=== PATIENT | male | born 1980 | race Caucasian/White ===

== ENCOUNTER 2018-06-16 14:59 | Emergency (ER) | payer SELFPAY ==
[~2018-06-16] VITALS: Ht 172.7 cm; Wt 75.0 kg
[2018-06-16] MEDS ORDERED: LIDOCAINE W/EPINEPHRINE 1% 20ML VIAL As Ordered ONE (15:15)
[2018-06-16] MEDS ORDERED: LIDOCAINE W/EPINEPHRINE 1% 20ML VIAL SC ONE (15:15)
[2018-06-16] MEDS ORDERED: ADACEL/BOOSTRIX VACCINE (DIPHTH/PERTUSS/ACELL/TETANUS)0.5ML SYR (90715) IM ONE (15:15)
[2018-06-16] MEDS ORDERED: ONDANSETRON 4MG/2ML VIAL (J2405) IV ONE (15:30)
[2018-06-16] MEDS ORDERED: LORazepam 2 MG/ML VIAL (J2060) IV ONE (15:30)
[2018-06-16 16:02] LABS: HEMATOCRIT 33.1 % (42.0-52.0); HEMOGLOBIN 11.3 g/dl (13.5-17.5); MEAN CORPUSCULAR HEMOGLOBIN 33.6 pg (27.0-33.0); MEAN CORPUSCULAR HGB CONC 34.1 g/dl (32.0-36.5); MEAN CORPUSCULAR VOLUME 98.5 fl (80.0-96.0); PLATELET COUNT, AUTOMATED 158 10^3/uL (150-450); RED BLOOD COUNT 3.36 10^6/uL (4.30-6.10); WHITE BLOOD COUNT 6.7 10^3/uL (4.0-10.0)
[2018-06-16 16:46] LABS: ACETAMINOPHEN LEVEL < 2.0 UG/ML (10.0-30.0); ALBUMIN 3.8 GM/DL (3.2-5.2); ALT/SGPT 123 U/L (12-78); BILIRUBIN,DIRECT 0.1 MG/DL (0.0-0.2); BILIRUBIN,TOTAL 0.4 MG/DL (0.2-1.0); BLOOD UREA NITROGEN 7 MG/DL (7-18); CALCIUM LEVEL 7.6 MG/DL (8.5-10.1); CARBON DIOXIDE LEVEL 19 MEQ/L (21-32); CHLORIDE LEVEL 104 MEQ/L (98-107); CREATININE FOR GFR 0.82 MG/DL (0.70-1.30); ETHYL ALCOHOL (ETHANOL) 0.045 % (0.000-0.010); GLOMERULAR FILTRATION RATE > 60.0 (>60); GLUCOSE, FASTING 106 MG/DL (70-100); POTASSIUM SERUM 3.6 MEQ/L (3.5-5.1); SALICYLATE LEVEL < 1.7 MG/DL (5.0-30.0); SODIUM LEVEL 138 MEQ/L (136-145); TOTAL PROTEIN 7.1 GM/DL (6.4-8.2)
--- NOTE | 2018-06-16 19:21 | REP ---
AP LATERAL LEFT WRIST, TWO VIEWS: HISTORY: Foreign body. There is no acute fracture or dislocation. An irregular radiopaque foreign body is present in the soft-tissue medial to the carpal bones and distal ulna. IMPRESSION:There is a radiopaque foreign body in the soft-tissues as described above. Electronically Signed by Sunil Lynn MD 06/17/2018 08:41 A
[2018-06-16 19:44] LABS: AMPHETAMINES LEVEL URINE NEGATIVE (NEGATIVE); BARBITURATES URINE NEGATIVE (NEGATIVE); BENZODIAZEPINES URINE NEGATIVE (NEGATIVE); CANNABINOIDS URINE NEGATIVE (NEGATIVE); COCAINE METABOLITE URINE NEGATIVE (NEGATIVE); METHADONE URINE NEGATIVE (NEGATIVE); OPIATES URINE NEGATIVE (NEGATIVE); PHENCYCLIDINE URINE NEGATIVE (NEGATIVE)
[2018-06-16] MEDS ORDERED: KEFL500C17 PO (20:20)
[2018-06-16 20:22] VITALS: BP 113/67
== END 2018-06-16 20:35 | disposition home or self-care (01) ==
LOC: M ED 14:59
DX: S61.512A Laceration without foreign body of left wrist, initial encounter (principal); W25.XXXA Contact with sharp glass, initial encounter; Y92.009 Unspecified place in unspecified non-institutional (private) residence as the place of occurrence of the external cause; Y93.9 Activity, unspecified; Y99.8 Other external cause status; F10.20 Alcohol dependence, uncomplicated; F17.210 Nicotine dependence, cigarettes, uncomplicated
CPT/HCPCS: 12004; 73100; 80048; 80076; 80307; 84443; 85027; 90715; 99284; G0480; J2060; J2405

== ENCOUNTER 2020-04-08 22:36 | Emergency (ER) | payer MEDICAID, SELFPAY ==
[~2020-04-08] VITALS: Ht 185.4 cm; Wt 78.6 kg
[~2020-04-08 22:36] MED LIST: KEFL500C17 PO
[2020-04-08] MEDS ORDERED: ONDANSETRON 4MG/2ML VIAL IV ONE (23:00)
[2020-04-08] MEDS ORDERED: PANTOPRAZOLE 40MG VIAL (C9113 PER 1) IV ONE (23:00)
[2020-04-08] MEDS ORDERED: NS 1,000 ML IV ONE (23:00)
--- NOTE | 2020-04-08 23:42 | REPVR ---
PROCEDURE INFORMATION: Exam: XR Complete Acute Abdomen Series Exam date and time: 04/08/2020 10:55 PM Age: 39 years old Clinical indication: Other: Abdominal pain TECHNIQUE: Imaging protocol: XR complete acute abdomen series, including 2 or more views of the abdomen and a single view chest. COMPARISON: No relevant prior studies available. FINDINGS: Lungs: Normal. No consolidation. Pleural spaces: Normal. No pleural effusions. No pneumothorax. Heart/Mediastinum: Normal. No cardiomegaly. Gastrointestinal tract: Mild gas throughout the GI tract without abnormal dilatation. No abnormal air-fluid levels. Intraperitoneal space: No free air. Bones/joints: Normal. No acute fracture. Soft tissues: Normal. IMPRESSION: 1. Negative chest. 2. Negative abdomen with mild gas which is within normal limits. Electronically signed by: Rasheed Trujillo On 04/08/2020 23:42:52 PM
[2020-04-09] LABS: INR 0.84; PROTHROMBIN TIME 11.7 SECONDS (12.5-14.3)
[2020-04-09 00:04] LABS: AMPHETAMINES LEVEL URINE NEGATIVE (NEGATIVE); BARBITURATES URINE NEGATIVE (NEGATIVE); BENZODIAZEPINES URINE NEGATIVE (NEGATIVE); CANNABINOIDS URINE NEGATIVE (NEGATIVE); COCAINE METABOLITE URINE NEGATIVE (NEGATIVE); METHADONE URINE NEGATIVE (NEGATIVE); OPIATES URINE NEGATIVE (NEGATIVE); PHENCYCLIDINE URINE NEGATIVE (NEGATIVE)
[2020-04-09 00:07] LABS: BASO # 0.1 10^3/uL (0.0-0.2); BASO % 1.8 % (0.0-1.0); EOS % 0.3 % (0.0-3.0); HEMATOCRIT 45.3 % (42.0-52.0); HEMOGLOBIN 15.3 g/dl (13.5-17.5); LYMPH # 1.3 10^3/uL (1.5-5.0); LYMPH % 40.6 % (24.0-44.0); MEAN CORPUSCULAR HEMOGLOBIN 33.5 pg (27.0-33.0); MEAN CORPUSCULAR HGB CONC 33.8 g/dl (32.0-36.5); MEAN CORPUSCULAR VOLUME 99.1 fl (80.0-96.0); MONO # 0.4 10^3/uL (0.0-0.8); MONO % 13.3 % (2.0-8.0); NEUTROPHILS # 1.4 10^3/uL (1.5-8.5); NEUTROPHILS % 43.7 % (36.0-66.0); PLATELET COUNT, AUTOMATED 109 10^3/uL (150-450); RED BLOOD COUNT 4.57 10^6/uL (4.30-6.10); WHITE BLOOD COUNT 3.3 10^3/uL (4.0-10.0)
[2020-04-09 00:22] LABS: ALBUMIN 4.7 GM/DL (3.2-5.2); ALT/SGPT 84 U/L (12-78); BILIRUBIN,DIRECT 0.2 MG/DL (0.0-0.2); BILIRUBIN,TOTAL 0.4 MG/DL (0.2-1.0); BLOOD UREA NITROGEN 5 MG/DL (7-18); CALCIUM LEVEL 9.3 MG/DL (8.5-10.1); CARBON DIOXIDE LEVEL 29 MEQ/L (21-32); CHLORIDE LEVEL 106 MEQ/L (98-107); CREATININE FOR GFR 0.75 MG/DL (0.70-1.30); ETHYL ALCOHOL (ETHANOL) 0.395 % (0.000-0.010); GLOMERULAR FILTRATION RATE > 60.0 (>60); GLUCOSE, FASTING 73 MG/DL (70-100); LIPASE 243 U/L (73-393); POTASSIUM SERUM 3.8 MEQ/L (3.5-5.1); SODIUM LEVEL 146 MEQ/L (136-145); TOTAL PROTEIN 8.2 GM/DL (6.4-8.2)
[2020-04-09] MEDS ORDERED: NICOTINE 21MG/24HR 1 EA TRANSDERMAL TD ONE (03:00)
[2020-04-09 06:39] VITALS: BP 120/71
== END 2020-04-09 06:53 | disposition home or self-care (01) ==
LOC: M ED 22:36 → EDBD 22:36 → M ED 04-09 06:53
DX: F10.129 Alcohol abuse with intoxication, unspecified (principal); F17.200 Nicotine dependence, unspecified, uncomplicated
CPT/HCPCS: 74021; 80048; 80076; 80307; 82077; 83690; 85025; 85610; 86850; 86900; 86901; 87798; 96361; 96374; 96375; 99285; C9113; J2405

== ENCOUNTER 2020-04-09 16:20 | Emergency (ER) | payer MEDICAID, SELFPAY ==
[~2020-04-09] VITALS: Ht 182.9 cm; Wt 77.8 kg
--- OUTSIDE RECORDS SUMMARY | 2020-04-09 16:32 | CCD ---
Author Author [facility] Address Unknown Phone Unavailable Support Name Relationship Address Phone GRACIE Next Of Kin [address] [place], [place] [phone] ST Next Of Kin Unknown Unavailable MIGUEL A BISHOP Next Of Kin [place], [place] [phone] TAMIKO BISHOP Next Of Kin [place] [phone] OLIVER BISHOP Next Of Kin Unknown Re-disclosure Warning The records that you are about to access may contain information from federally-assisted alcohol or drug abuse programs. If such information is present, then the following federally mandated warning applies: This information has been disclosed to you from records protected by federal confidentiality rules (42 CFR part 2). The federal rules prohibit you from making any further disclosure of this information unless further disclosure is expressly permitted by the written consent of the person to whom it pertains or as otherwise permitted by 42 CFR part 2. A general authorization for the release of medical or other information is NOT sufficient for this purpose. The Federal rules restrict any use of the information to criminally investigate or prosecute any alcohol or drug abuse patient.The records that you are about to access may contain highly sensitive health information, the redisclosure of which is protected by Article 27-F of the [facility] Public Health law. If you continue you may have access to information: Regarding HIV / AIDS; Provided by facilities licensed or operated by the [facility] Office of Mental Health; or Provided by the [facility] Office for People With Developmental Disabilities. If such information is present, then the following [facility] mandated warning applies: This information has been disclosed to you from confidential records which are protected by state law. State law prohibits you from making any further disclosure of this information without the specific written consent of the person to whom it pertains, or as otherwise permitted by law. Any unauthorized further disclosure in violation of state law may result in a fine or assisted sentence or both. A general authorization for the release of medical or other information is NOT sufficient authorization for further disc losure. Insurance Providers Payer name Policy type / Coverage type Policy ID Covered green party ID Covered green party's relationship to [place] Policy [place] Plan Information SELF PAY ONLY [id number] Results ID Date Data Source [id number] 02/15/2020 09:36:00 AM EST [place] Name Value Range Interpretation Code Description Data [place] rce(s) Supporting Document(s) [facility] This lab was ordered by [facility] and reported by [email or web address]. Procedure
[2020-04-09] MEDS ORDERED: LORazepam 2 MG TAB PO PRN (17:00)
[2020-04-09] MEDS ORDERED: ONDANSETRON 4MG/2ML VIAL IV ONE (17:00)
[2020-04-09] MEDS ORDERED: LORazepam 2 MG/ML VIAL IV STA (17:01)
[2020-04-09 17:10] LABS: HEMATOCRIT 41.3 % (42.0-52.0); HEMOGLOBIN 13.7 g/dl (13.5-17.5); MEAN CORPUSCULAR HGB CONC 33.2 g/dl (32.0-36.5); MEAN CORPUSCULAR VOLUME 99.5 fl (80.0-96.0); RED BLOOD COUNT 4.15 10^6/uL (4.30-6.10)
[2020-04-09 17:11] LABS: PLATELET COUNT, AUTOMATED 95 10^3/uL (150-450)
--- OUTSIDE RECORDS SUMMARY | 2020-04-09 17:34 | CCD ---
Author Author [facility] Address Unknown Phone Unavailable Support Name Relationship Address Phone GRACIE Next Of Kin [address] [place], [place] [phone] ST Next Of Kin Unknown Unavailable MIGUEL A BISHOP Next Of Kin [place], [place] [phone] TAMIKO BISHOP Next Of Kin [place] [phone] OLIVER BISHOP Next Of Kin Unknown Re-disclosure [...] is protected by Article 27-F of the [facility] Public Health law. If you continue you may have access to information: Regarding HIV / AIDS; Provided by facilities licensed or operated by the [facility] Office of Mental Health; or Provided by the [facility] Office for People With Developmental Disabilities. If such information is present, then the following [facility] mandated warning applies: This information has been [...] law may result in a fine or fdc sentence or both. A general authorization for the release of medical or other information is NOT sufficient authorization for further disc losure. Insurance Providers Payer name Policy type / Coverage type Policy ID Covered green party ID Covered green party's relationship to [place] Policy [place] Plan Information SELF PAY ONLY [id number] Results ID Date Data Source [id number] 02/15/2020 09:36:00 AM EST [place] Name Value Range Interpretation Code Description Data [place] rce(s) Supporting Document(s) [facility] This lab was ordered by [facility] and reported by [facility]. Procedure
[2020-04-09 17:50] LABS: ACETAMINOPHEN LEVEL < 2.0 UG/ML (10.0-30.0); ALBUMIN 4.4 GM/DL (3.2-5.2); ALT/SGPT 77 U/L (12-78); BILIRUBIN,DIRECT 0.2 MG/DL (0.0-0.2); BILIRUBIN,TOTAL 0.7 MG/DL (0.2-1.0); BLOOD UREA NITROGEN 8 MG/DL (7-18); CALCIUM LEVEL 8.3 MG/DL (8.5-10.1); CARBON DIOXIDE LEVEL 29 MEQ/L (21-32); CHLORIDE LEVEL 103 MEQ/L (98-107); CPK CREATINE PHOSPHOKINASE 344 U/L (39-308); ETHYL ALCOHOL (ETHANOL) < 0.003 % (0.000-0.010); GLOMERULAR FILTRATION RATE > 60.0 (>60); GLUCOSE, FASTING 91 MG/DL (70-100); POTASSIUM SERUM 3.8 MEQ/L (3.5-5.1); SALICYLATE LEVEL < 1.7 MG/DL (5.0-30.0); SODIUM LEVEL 141 MEQ/L (136-145); THYROID STIMULATING HORMONE 0.952 uIU/ML (0.358-3.740); TOTAL PROTEIN 7.5 GM/DL (6.4-8.2)
[2020-04-09] MEDS ORDERED: MULTIVITAMIN -ADULT INJECTION 10 ML, THIAMINE INJection 100 MG, FOLIC ACID 1 MG in NS 1... IV ONE (18:00)
--- NOTE | 2020-04-09 20:53 | ECGEPIP ---
[facility] - ED Test Date: 2020-04-09 Pat Name: BRAD BISHOP Department: Room: - Gender: Male Marriage Counselor Minister: LR : 1980 Requested By: UMU Vallejo Order Number: [id number] Reading MD: Klarissa Jarrett Measurements Intervals [place] Rate: 72 P: 19 WY: 122 QRS: 70 QRSD: 84 T: 43 QT: 420 QTc: 459 Interpretive Statements Normal sinus rhythm with sinus arrhythmia NSTTW abnormalities No prior Electronically Signed on 04-09-2020 20:53:23 EST by Klarissa Jarrett
[2020-04-09] MEDS ORDERED: THIAMINE 100 MG TAB PO SCH (21:00)
[2020-04-09] MEDS ORDERED: LORazepam 2 MG/ML VIAL IV PRN (21:00)
[2020-04-09 21:02] LABS: AMPHETAMINES LEVEL URINE NEGATIVE (NEGATIVE); BARBITURATES URINE NEGATIVE (NEGATIVE); BENZODIAZEPINES URINE NEGATIVE (NEGATIVE); CANNABINOIDS URINE NEGATIVE (NEGATIVE); COCAINE METABOLITE URINE NEGATIVE (NEGATIVE); METHADONE URINE NEGATIVE (NEGATIVE); OPIATES URINE NEGATIVE (NEGATIVE); PHENCYCLIDINE URINE NEGATIVE (NEGATIVE)
[2020-04-09 21:25] VITALS: BP 136/83
[2020-04-10] MEDS ORDERED: FOLIC ACID 1 MG TAB PO SCH (09:00)
[2020-04-10] MEDS ORDERED: MULTIVITAMINS/MINERALS THERAP 1 TAB PO SCH (09:00)
== END 2020-04-09 21:30 | disposition short-term general hospital (02) ==
LOC: M ED 16:20
DX: F10.239 Alcohol dependence with withdrawal, unspecified (principal); F17.200 Nicotine dependence, unspecified, uncomplicated
CPT/HCPCS: 80048; 80076; 80143; 80307; 82077; 82550; 84443; 85027; 85049; 85055; 87798; 93005; 96361; 96374; 96375; 99284; J2060; J2405; J3411

== ENCOUNTER 2020-09-20 03:26 | Emergency (ER) | payer MEDICAID, OTHER ==
[~2020-09-20] VITALS: Ht 180.3 cm; Wt 72.0 kg
[2020-09-20 03:26] VITALS: BP 138/85
[2020-09-20] MEDS ORDERED: KETO10TAB PO (07:05)
[2020-09-20] MEDS ORDERED: KETOROLAC TROMETHAMINE 10 MG TAB PO ONE (07:05)
[2020-09-20] MEDS ORDERED: LIDO2SOL9 SSP (07:05)
[2020-09-20] MEDS ORDERED: AUGMENTIN 875 MG TAB PO ONE (07:05)
[2020-09-20] MEDS ORDERED: LIDOCAINE VISCOUS 2% SOLN 15ML UDC SSP ONE (07:05)
[2020-09-20] MEDS ORDERED: AUGM875T28 PO (07:05)
== END 2020-09-20 07:23 | disposition home or self-care (01) ==
LOC: M ED 03:26
DX: K04.7 Periapical abscess without sinus (principal); F17.210 Nicotine dependence, cigarettes, uncomplicated

== ENCOUNTER 2020-09-29 19:09 | Emergency (ER) | payer OTHER ==
[~2020-09-29] VITALS: Ht 180.3 cm; Wt 68.4 kg
[~2020-09-29 19:09] MED LIST changes: +AUGM875T28 PO; +KETO10TAB PO; +LIDO2SOL9 SSP
[2020-09-29 19:10] VITALS: BP 138/84
== END 2020-09-29 20:38 | disposition left against medical advice (07) ==
LOC: M ED 19:09
DX: F10.129 Alcohol abuse with intoxication, unspecified (principal); F17.210 Nicotine dependence, cigarettes, uncomplicated; F12.20 Cannabis dependence, uncomplicated

== ENCOUNTER → 2020-11-07 | Outpatient (CLI) | payer OTHER ==
[2020-11-07 18:06] LABS: BASO # 0.1 10^3/uL (0.0-0.2); BASO % 1.2 % (0.0-1.0); EOS # 0.2 10^3/uL (0.0-0.5); EOS % 3.1 % (0.0-3.0); HEMATOCRIT 42.2 % (42.0-52.0); HEMOGLOBIN 14.2 g/dl (13.5-17.5); LYMPH # 1.4 10^3/uL (1.5-5.0); LYMPH % 27.7 % (24.0-44.0); MEAN CORPUSCULAR HEMOGLOBIN 31.3 pg (27.0-33.0); MEAN CORPUSCULAR HGB CONC 33.6 g/dl (32.0-36.5); MEAN CORPUSCULAR VOLUME 93.2 fl (80.0-96.0); MONO # 0.8 10^3/uL (0.0-0.8); MONO % 15.2 % (2.0-8.0); NEUTROPHILS # 2.7 10^3/uL (1.5-8.5); NEUTROPHILS % 52.6 % (36.0-66.0); PLATELET COUNT, AUTOMATED 190 10^3/uL (150-450); RED BLOOD COUNT 4.53 10^6/uL (4.30-6.10); WHITE BLOOD COUNT 5.2 10^3/uL (4.0-10.0)
[2020-11-07 18:19] LABS: HEMOGLOBIN A1c 5.1 %
[2020-11-07 18:31] LABS: ALBUMIN 3.9 GM/DL (3.2-5.2); ALT/SGPT 25 U/L (12-78); BILIRUBIN,TOTAL 0.5 MG/DL (0.2-1.0); BLOOD UREA NITROGEN 12 MG/DL (7-18); CALCIUM LEVEL 9.3 MG/DL (8.5-10.1); CARBON DIOXIDE LEVEL 30 MEQ/L (21-32); CHLORIDE LEVEL 105 MEQ/L (98-107); CHOLESTEROL LEVEL 183 MG/DL (<200); CHOLESTEROL RISK RATIO 3.267 (<5); CREATININE FOR GFR 0.84 MG/DL (0.70-1.30); FREE T4 0.75 NG/DL (0.76-1.46); GLOMERULAR FILTRATION RATE > 60.0 (>60); GLUCOSE, FASTING 76 MG/DL (70-100); HDL CHOLESTEROL 56 MG/DL (>40); LDL CHOLESTEROL 106 MG/DL (<100); NON-HDL-C 127 MG/DL; POTASSIUM SERUM 4.4 MEQ/L (3.5-5.1); SODIUM LEVEL 140 MEQ/L (136-145); THYROID STIMULATING HORMONE 0.789 uIU/ML (0.358-3.740); TOTAL PROTEIN 6.8 GM/DL (6.4-8.2); TRIGLYCERIDES LEVEL 106 MG/DL (<150)
== END ==
LOC: M PLALAB 14:49
PROVIDERS: ATTEND Physician Assistant Medical
DX: Z13.220 Encounter for screening for lipoid disorders (principal); Z13.1 Encounter for screening for diabetes mellitus; Z12.11 Encounter for screening for malignant neoplasm of colon

== ENCOUNTER 2022-04-02 04:33 | Emergency (ER) | payer OTHER ==
[~2022-04-02] VITALS: Ht 182.9 cm; Wt 73.6 kg
[~2022-04-02 04:33] MED LIST changes: +LIDO2SO SSP; -LIDO2SOL9 SSP
[2022-04-02 04:34] VITALS: BP 125/71
[2022-04-02] MEDS ORDERED: PERC5TAB12 PO (09:23)
[2022-04-02] MEDS ORDERED: AMOX500C PO (09:23)
[2022-04-02] MEDS ORDERED: IBUP80TA PO (09:26)
== END 2022-04-02 09:50 | disposition home or self-care (01) ==
LOC: M ED 04:33
DX: R68.84 Jaw pain (principal); F17.200 Nicotine dependence, unspecified, uncomplicated

== ENCOUNTER 2023-01-13 01:30 | Emergency (ER) | payer OTHER ==
[~2023-01-13] VITALS: Ht 157.5 cm; Wt 47.3 kg
[~2023-01-13 01:30] MED LIST changes: +AMOX500C PO; +IBUP80TA PO; -LIDO2SO SSP; +LIDO2SOBTL SSP; +PERC5TAB12 PO
[2023-01-13 02:56] LABS: HEMATOCRIT 43.2 % (42.0-52.0); MEAN CORPUSCULAR HEMOGLOBIN 32.6 pg (27.0-33.0); MEAN CORPUSCULAR HGB CONC 34.7 g/dl (32.0-36.5); MEAN CORPUSCULAR VOLUME 93.9 fl (80.0-96.0); PLATELET COUNT, AUTOMATED 120 10^3/uL (150-450)
[2023-01-13] MEDS ORDERED: NS 1,000 ML IV ONE ×2 (03:00→06:10)
[2023-01-13] MEDS ORDERED: LORazepam 2 MG TAB PO PRN (03:00)
[2023-01-13] MEDS ORDERED: LORazepam 2 MG/ML 1ML VIAL IV STA (03:00)
[2023-01-13 03:24] LABS: AMPHETAMINES LEVEL URINE NEGATIVE (NEGATIVE); BARBITURATES URINE NEGATIVE (NEGATIVE); BENZODIAZEPINES URINE NEGATIVE (NEGATIVE); CANNABINOIDS URINE NEGATIVE (NEGATIVE); COCAINE METABOLITE URINE NEGATIVE (NEGATIVE); METHADONE URINE NEGATIVE (NEGATIVE); OPIATES URINE NEGATIVE (NEGATIVE); PHENCYCLIDINE URINE NEGATIVE (NEGATIVE)
[2023-01-13 03:27] LABS: ETHYL ALCOHOL (ETHANOL) < 0.003 % (0.000-0.010)
[2023-01-13 03:29] LABS: ALBUMIN 4.1 G/DL (3.2-5.2); ALKALINE PHOSPHATASE 73 U/L (46-116); ALT/SGPT 159 U/L (7.0-40); AST/SGOT 184 U/L (<34); BILIRUBIN,DIRECT 0.2 MG/DL (<0.4); BILIRUBIN,TOTAL 0.8 MG/DL (0.3-1.2); BLOOD UREA NITROGEN 16 MG/DL (9-23); CARBON DIOXIDE LEVEL 27 MMOL/L (20-31); CHLORIDE LEVEL 102 MMOL/L (98-107); CREATININE FOR GFR 0.66 MG/DL (0.70-1.30); GLOMERULAR FILTRATION RATE > 60.0 (>60); GLUCOSE, FASTING 116 MG/DL (60-100); SALICYLATE LEVEL < 3.0 MG/DL (<30); SODIUM LEVEL 140 MMOL/L (136-145)
[2023-01-13 03:31] LABS: THYROID STIMULATING HORMONE 1.218 uIU/ML (0.55-4.78)
[2023-01-13] MEDS ORDERED: OXAZEPAM 15MG CAP PO ONE (06:10)
[2023-01-13] MEDS ORDERED: FOLIC ACID 1MG TAB PO SCH (09:00)
[2023-01-13] MEDS ORDERED: THIAMINE 100 MG TAB PO SCH (09:00)
[2023-01-13] MEDS ORDERED: MULTIVITAMINS/MINERALS THERAP 1 TAB PO SCH (09:00)
[2023-01-13 10:51] VITALS: BP 97/63; TEMP 98; O2SAT 99
== END 2023-01-13 10:55 | disposition home or self-care (01) ==
LOC: M ED 01:30
DX: F10.20 Alcohol dependence, uncomplicated (principal); F17.200 Nicotine dependence, unspecified, uncomplicated
CPT/HCPCS: 80048; 80076; 80143; 80307; 82077; 84443; 85027; 87635; 96361; 96374; 99285; J2060

== ENCOUNTER → 2023-01-30 | Outpatient (CLI) | payer OTHER ==
[~2023-01-30] MED LIST changes: +LIDO100S29 SSP; -LIDO2SOBTL SSP
== END ==
LOC: M PLAIMG 13:59
PROVIDERS: ATTEND Physician Assistant Medical
DX: M25.572 Pain in left ankle and joints of left foot (principal); M54.50 Low back pain, unspecified

== ENCOUNTER → 2023-02-08 | Outpatient (CLI) | payer OTHER | LOC: M RAD 10:18 | PROVIDERS: ATTEND Physician Assistant Medical | DX: R10.9 Unspecified abdominal pain (principal) ==

== ENCOUNTER 2023-07-24 20:10 | Emergency (ER) | payer OTHER ==
[~2023-07-24] VITALS: Ht 182.9 cm; Wt 77.1 kg
[2023-07-24] MEDS: PERCOCET 5MG/325MG TAB PO ONE (23:16)
[2023-07-24 23:55] VITALS: BP 118/74; TEMP 97.9; O2SAT 97
== END 2023-07-24 23:58 | disposition home or self-care (01) ==
LOC: M ED 20:10
DX: S67.21XA Crushing injury of right hand, initial encounter (principal); S62.300A Unspecified fracture of second metacarpal bone, right hand, initial encounter for closed fracture; S62.302A Unspecified fracture of third metacarpal bone, right hand, initial encounter for closed fracture; Y92.9 Unspecified place or not applicable; Y93.9 Activity, unspecified; Y99.9 Unspecified external cause status; V86.65XA Passenger of 3- or 4- wheeled all-terrain vehicle (ATV) injured in nontraffic accident, initial encounter; F17.210 Nicotine dependence, cigarettes, uncomplicated; F10.10 Alcohol abuse, uncomplicated

== ENCOUNTER → 2023-07-26 | Outpatient (CLI) | payer OTHER | LOC: M SOG 15:49 | PROVIDERS: ATTEND Student in an Organized Health Care Education/Training Program | DX: M25.531 Pain in right wrist (principal) ==

== ENCOUNTER → 2023-07-30 | Outpatient (CLI) | payer OTHER | LOC: M RAD 13:26 | PROVIDERS: ATTEND Physician Assistant | DX: S62.302A Unspecified fracture of third metacarpal bone, right hand, initial encounter for closed fracture (principal); W18.30XA Fall on same level, unspecified, initial encounter; Y92.009 Unspecified place in unspecified non-institutional (private) residence as the place of occurrence of the external cause ==

== ENCOUNTER 2023-08-07 07:53 | Day surgery (SDC) | payer OTHER ==
[~2023-08-07] VITALS: Ht 182.9 cm; Wt 77.4 kg
[2023-08-07] MEDS ORDERED: ACETAMINOPHEN 1000MG 100ML IV BAG As Ordered ONE (08:06)
[2023-08-07] MEDS ORDERED: ONDANSETRON 4MG 2ML VIAL As Ordered ONE (08:06)
[2023-08-07] MEDS ORDERED: LIDOCAINE 2% 100MG/5ML SDV (FOR ANES.) As Ordered ONE (08:06)
[2023-08-07] MEDS ORDERED: propofoL 200 MG/20 ML VIAL As Ordered ONE (08:06)
[2023-08-07] MEDS ORDERED: fentaNYL 250 MCG/5 ML INJECTION As Ordered ONE (08:06)
[2023-08-07] MEDS ORDERED: MIDAZOLAM INJ 2MG/2ML VIAL As Ordered ONE (08:06)
[2023-08-07] MEDS ORDERED: KETOROLAC 60MG 2ML VIAL As Ordered ONE (08:06)
[2023-08-07] MEDS: LR 1,000 ML IV SCH (08:38)
[2023-08-07] MEDS: ceFAZolin 2 GM/D5W 50 ML IV BAG As Ordered ONE (10:50)
[2023-08-07] MEDS ORDERED: GLYCOPYRROLATE INJ 0.2 MG/ML 2 ML VIAL As Ordered ONE (11:10)
[2023-08-07] MEDS ORDERED: ePHEDrine SULFATE 25 MG/5 ML(5MG/ML) SYRINGE As Ordered ONE (11:13)
[2023-08-07] MEDS: ceFAZolin SOD 2 GM in IV 1 EA IV ONE (11:23)
[2023-08-07] MEDS: BACITRACIN OINTMENT 30GM TUBE As Ordered ONE (12:37)
[2023-08-07] MEDS ORDERED: PERCOCET PO (13:15)
[2023-08-07] MEDS ORDERED: fentaNYL 100 MCG/2 ML INJECTION IV PRN (13:15)
[2023-08-07] MEDS ORDERED: LR 1,000 ML IV SCH (13:15)
[2023-08-07] MEDS: ONDANSETRON 4MG 2ML VIAL IV PRN (13:18)
[2023-08-07] MEDS ORDERED: METOCLOPRAMIDE INJ 10MG/2ML VIAL IV PRN (13:20)
[2023-08-07] MEDS: oxyCODONE 5MG TAB PO PRN (13:26)
[2023-08-07 14:40] VITALS: BP 127/72; TEMP 97.9; O2SAT 98
== END 2023-08-07 14:35 | disposition home or self-care (01) ==
LOC: M SDC 07:53
PROVIDERS: ATTEND Orthopaedic Surgery Hand Surgery
DX: S62.310A Displaced fracture of base of second metacarpal bone, right hand, initial encounter for closed fracture (principal); S62.322A Displaced fracture of shaft of third metacarpal bone, right hand, initial encounter for closed fracture; S62.171A Displaced fracture of trapezium [larger multangular], right wrist, initial encounter for closed fracture; S62.181A Displaced fracture of trapezoid [smaller multangular], right wrist, initial encounter for closed fracture; V86.99XA Unspecified occupant of other special all-terrain or other off-road motor vehicle injured in nontraffic accident, initial encounter; Y93.19 Activity, other involving water and watercraft; Y92.9 Unspecified place or not applicable; F17.210 Nicotine dependence, cigarettes, uncomplicated
CPT/HCPCS: 26615; 76000; C1713; J0131; J0665; J0690; J1100; J1885; J2250; J2405; J3010

== ENCOUNTER → 2023-08-14 | Outpatient (CLI) | payer OTHER ==
[~2023-08-14] MED LIST changes: +PERCOCET PO
== END ==
LOC: M SOG 10:38
PROVIDERS: ATTEND Physician Assistant
DX: S62.300D Unspecified fracture of second metacarpal bone, right hand, subsequent encounter for fracture with routine healing (principal)

== ENCOUNTER → 2023-09-05 | Outpatient (CLI) | payer OTHER | LOC: M SOG 07:50 | PROVIDERS: ATTEND Physician Assistant | DX: Z53.9 Procedure and treatment not carried out, unspecified reason (principal) ==

== ENCOUNTER 2024-11-09 23:42 | Emergency (ER) | payer OTHER, SELFPAY ==
[~2024-11-09] VITALS: Ht 182.9 cm; Wt 77.3 kg
[2024-11-10 03:04] LABS: BASO # 0.0 10^3/uL (0.0-0.2); BASO % 0.8 % (0.0-1.0); EOS # 0.1 10^3/uL (0.0-0.5); EOS % 2.0 % (0.0-3.0); LYMPH # 1.4 10^3/uL (1.5-5.0); LYMPH % 28.1 % (24.0-44.0); MONO # 0.5 10^3/uL (0.0-0.8); MONO % 10.2 % (2.0-8.0); NEUTROPHILS # 3.0 10^3/uL (1.5-8.5); NEUTROPHILS % 58.5 % (36.0-66.0); PLATELET COUNT, AUTOMATED 127 10^3/uL (150-450)
[2024-11-10 03:26] LABS: ALT/SGPT 188 U/L (7.0-40); AST/SGOT 199 U/L (<34); CALCIUM LEVEL 9.7 MG/DL (8.5-10.1); CARBON DIOXIDE LEVEL 29 MMOL/L (20-31); CHLORIDE LEVEL 103 MMOL/L (98-107); CREATININE FOR GFR 0.65 MG/DL (0.70-1.30); GLOMERULAR FILTRATION RATE > 90.0 (>60); POTASSIUM SERUM 3.9 MMOL/L (3.5-5.1); SODIUM LEVEL 141 MMOL/L (136-145)
[2024-11-10 03:53] LABS: ETHYL ALCOHOL (ETHANOL) 0.021 % (0.000-0.010)
[2024-11-10 07:08] VITALS: BP 116/61; TEMP 99.1; O2SAT 98
== END 2024-11-10 07:14 | disposition home or self-care (01) ==
LOC: M ED 23:42
DX: F10.220 Alcohol dependence with intoxication, uncomplicated (principal); F17.210 Nicotine dependence, cigarettes, uncomplicated; Z79.899 Other long term (current) drug therapy